=== PATIENT | female | born 1985 | race Caucasian/White ===

== ENCOUNTER → 2021-09-24 13:15 | Outpatient (CLI) | payer BC, SELFPAY ==
--- NOTE | ~2021-09-24 | US_ITS ---
EXAMINATION: US OB transvaginal EXAM DATE: 09/24/2021 13:50 INDICATION: Spotting in first trimester 1st trimester. TECHNIQUE: Pelvic obstetrical transvaginal sonogram was performed by a technologist. There are [facility] grayscale and Doppler images available for interpretation. There are no earlier studies of this gestation for comparison. FINDINGS: Uterus measures 11.1 x 5.9 x 6.0 cm. There is intrauterine gestation sac. pole with heart rate confirmed at 128 beats per minute. The crown-rump length of 5.6 mm corresponds to estima aiyana gestational age by ultrasound of 6 weeks 2 days, estimated date of confinement 05/18/2022. Yolk sa c is identified. Right ovary identified and is morphologically normal, the left not identified. There are 2 small subchorionic regions likely hematomas, each measuring about 1.2 cm diameter by 5 mm in thickness. IMPRESSION: Early live intrauterine gestation, age by ultrasound 6 weeks 2 days. 2 small subchorioni c hematomas. Reviewed, dictated and finalized at location A. [employer] PRODUCTION TEAM MEMBER IMPRESSION: Early live intrauterine gestation, age by ultrasound 6 weeks 2 day s. 2 small subchorionic hematomas.
== END ==
PROVIDERS: Visit Provider Obstetrics & Gynecology Gynecology
DX: O26.851 Spotting complicating pregnancy, first trimester (principal); Z3A.01 Less than 8 weeks gestation of pregnancy
CPT/HCPCS: 76817

== ENCOUNTER → 2021-10-22 14:01 | Outpatient (CLI) | payer BC, SELFPAY ==
--- NOTE | ~2021-10-22 | US_ITS ---
EXAMINATION: US OB <= 14 weeks fetus EXAM DATE: 10/22/2021 14:35 INDICATION: 1st trimester subchorionic hematoma. TECHNIQUE: Pelvic obstetrical transabdominal sonogram was performed by a technologist. There are mu ltiple grayscale and Doppler images available for interpretation. Comparison is made to prior examina tion from 09/24/2021. FINDINGS: Uterus measures 13.6 x 8.1 x 8.5 cm. There is intrauterine gestation sac. pole with heart rate confirmed at 162 beats per minute. The 4.4 cm crown-rump length corresponds to estimated gestational age by ultrasound of 11 weeks 1 day, estimated date of confinement 05/12/2022. Yolk sac is identified. Hypoechoic subchorionic region measuring 1.5 cm diameter by 0.8 cm in thickness, sma ll subchorionic hematoma. Ovaries not identified. IMPRESSION: Live intrauterine gestation with small subchorionic hemorrhage. Reviewed, dictated and finalized at location B. IFIED ORTHOTIST PRACTICE MANAGER
== END ==
PROVIDERS: Visit Provider Obstetrics & Gynecology Gynecology
DX: O36.8910 Maternal care for other specified fetal problems, first trimester, not applicable or unspecified (principal); Z3A.00 Weeks of gestation of pregnancy not specified
CPT/HCPCS: 76801

== ENCOUNTER → 2021-11-19 13:56 | Outpatient (CLI) | payer BC, SELFPAY ==
--- NOTE | ~2021-11-19 | US_ITS ---
EXAMINATION: US OB limited DATE: 11/19/2021 14:24 INDICATION: Subchorionic hematoma TECHNIQUE: Real-time ultrasound of the pelvis was performed. The interpreting radiologist was not pre sent for the study. COMPARISON: 10/22/2021 FINDINGS: There is a single living fetus in breech presentation. The placenta is anterior and not low-lying wi th caudal margin 7.4 cm from the internal cervical os. heart rate is 161 beats per minute (bpm) . The amniotic fluid volume is subjectively normal. Small subchorionic hematoma along the left anteri or margin of the placenta measuring up to 1.7 x 0.8 cm IMPRESSION: 1. Single living fetus in breech presentation with heart rate of 161 bpm. 2. Persistent small subchorionic hematoma along the left anterior margin of the anterior placenta. Reviewed, dictated and finalized at location B. ING MACHINE ASSEMBLER IMPRESSION: 1. Single living fetus in breech presentation with heart rate of 161 bpm . 2. Persistent small subchorionic hematoma along the left anterior margin of the anterior placenta.
== END ==
PROVIDERS: Visit Provider Obstetrics & Gynecology Gynecology
DX: O36.8910 Maternal care for other specified fetal problems, first trimester, not applicable or unspecified (principal); Z3A.00 Weeks of gestation of pregnancy not specified
CPT/HCPCS: 76815

== ENCOUNTER → 2021-12-03 14:01 | Outpatient (CLI) | payer BC, SELFPAY ==
--- NOTE | ~2021-12-03 | US_ITS ---
EXAMINATION: US OB limited DATE: 12/03/2021 14:20 INDICATION: Subchorionic hematoma follow-up TECHNIQUE: Real-time ultrasound of the pelvis was performed. The interpreting radiologist was not pre sent for the study. COMPARISON: 11/19/2021 FINDINGS: There is a single living fetus in vertex presentation. The placenta is anterior and 6.1 cm from the internal cervical os. There is an approximately 8 mm x 7 mm 6 mm hematoma along the placenta l margin. cardiac activity and movement are noted. heart rate is 153 beats per vivian te (bpm). The amniotic fluid index is subjectively normal. IMPRESSION: 1. Single living fetus in vertex presentation. 2. Tiny hematoma along the inferior placental margin. Reviewed, dictated and finalized at location F. GER THERAPY
== END ==
PROVIDERS: Visit Provider Obstetrics & Gynecology Gynecology
DX: O36.8912 Maternal care for other specified fetal problems, first trimester, fetus 2 (principal); Z3A.17 17 weeks gestation of pregnancy
CPT/HCPCS: 76815

== ENCOUNTER 2022-04-04 12:14 | Outpatient (CLI) | payer BC, SELFPAY ==
[2022-04-04 12:43] LABS: Hematocrit 34.5 % (37.0-47.0); Hemoglobin 11.2 g/dL (12.0-15.0); Mean Corpuscular HGB Conc 32.5 g/dl (32-36); Mean Corpuscular Volume 86.3 fl (80-100); Mean Platelet Volume 9.2 fl (7.4-10.4); Platelet Count Result 207 k/mm3 (150-375); White Blood Count 7.6 K/mm3 (4.5-10.0)
[2022-04-04 12:56] LABS: Alanine Aminotransferase 12 U/L (6-35); Albumin Level 3.5 g/dL (3.5-5.1); Alkaline Phosphatase 185 U/L (38-126); Anion Gap 7 mmol/L (8-16); Aspartate Amino Transferase 19 U/L (14-36); Bilirubin,Total 0.3 mg/dL (0.2-1.3); Blood Urea Nitrogen 8 mg/dL (7-17); Calcium 9.4 mg/dL (8.4-10.2); Carbon Dioxide 21 mmol/L (22-30); Chloride 109 mmol/L (98-107); Estimated Glomerular Filt Rate > 60; Glucose 115 mg/dL (65-110); Potassium 3.6 mmol/L (3.4-5.0); Sodium 137 mmol/L (137-145); Uric Acid 4.2 mg/dL (2.5-7.5)
[2022-04-04 13:06] LABS: Lactate Dehydrogenase 390 U/L (313-618)
== END 2022-04-04 12:15 | disposition home or self-care (01) ==
LOC: ANHLAB 12:16
PROVIDERS: PCP Obstetrics & Gynecology Gynecology; Visit Provider Obstetrics & Gynecology Gynecology
DX: I10 Essential (primary) hypertension (principal)
CPT/HCPCS: 36415; 80053; 83615; 84550; 85027

== ENCOUNTER 2022-04-06 12:52 | Outpatient (CLI) | payer BC, SELFPAY ==
[2022-04-06 13:15] LABS: Collection Time Urine 24 HOURS
[2022-04-06 13:31] LABS: Specific Gravity Ur 1.012; Total Volume 24 Hour Urine 2500 ml
[2022-04-06 13:37] LABS: Creatinine Urine 52.1 mg/dL; Patient Weight 225 Lbs; Total Protein Urine 24 Hr 400 mg/24hr (28-141); Total Protein Urine Random 16 mg/dL
[2022-04-06 13:40] LABS: Creatinine Clearance Urine 152.7 ml/min (75-125); Serum Creat 0.5
== END 2022-04-06 12:53 | disposition home or self-care (01) ==
PROVIDERS: PCP Obstetrics & Gynecology Gynecology; Visit Provider Obstetrics & Gynecology Gynecology
DX: O14.93 Unspecified pre-eclampsia, third trimester (principal); Z3A.35 35 weeks gestation of pregnancy
CPT/HCPCS: 81050; 82575; 84156

== ENCOUNTER 2022-04-08 18:32 | Outpatient (RCR) | payer BC, SELFPAY ==
[2022-04-07] MEDS: BETAMETHASONE SOD PHOS/ACETATE 30 MG/5 ML VIAL 12 MG IM (18:44)
[2022-04-08] MEDS: BETAMETHASONE SOD PHOS/ACETATE 30 MG/5 ML VIAL 12 MG IM (18:41)
== END 2022-05-24 09:16 | disposition home or self-care (01) ==
LOC: ANHOBOP 18:32
PROVIDERS: PCP Obstetrics & Gynecology Gynecology; Visit Provider Obstetrics & Gynecology Gynecology
DX: O36.8990 Maternal care for other specified fetal problems, unspecified trimester, not applicable or unspecified (principal); Z3A.00 Weeks of gestation of pregnancy not specified
CPT/HCPCS: 96372; J0702

== ENCOUNTER 2022-04-18 17:00 | Inpatient (IN) | payer BC, SELFPAY ==
[2022-04-18] VITALS (7 sets, daily range): BP systolic 122–139; BP diastolic 79–95; PULSE 95–114; TEMP 36.4; BMI 37.6
--- NOTE | 2022-04-18 17:58 | LDADM ---
This patient, Sudha Le, was admitted to Labor/Delivery/Recovery 109 on 04/18/22 at 17:00. Plans for labor, pain management and were discussed with patient. Patient/family oriented to hospital policies and general routines including ID bracelet, bed and alarms, visiting hours, pain management, procedures, bathroom and other care routines, personal items, smoking policy, room service/diet and guest tray routines, security routines, and visiting hours. Patient/Family are encouraged to report perceived risks to care and to ask questions if they do not understand what they are told or what they should do. See OBIX for further documentation.
[2022-04-18 18:08] LABS: Basophils Percent Auto 0.3 % (0.2-1.2); Eosinophils Percent Auto 0.1 % (0-4.4); Hematocrit 34.8 % (37.0-47.0); Hemoglobin 11.5 g/dL (12.0-15.0); Immature Granulocyte Absolute 0.06 K/mm3 (0.00-0.031); Immature Granulocyte Percent A 0.7 % (0-0.5); Lymphocytes Absolute Auto 1.96 K/mm3 (0.9-3.2); Lymphocytes Percent Auto 22.6 % (18.3-44.2); Mean Corpuscular Hemoglobin 27.3 pg (26-34); Mean Corpuscular Volume 82.5 fl (80-100); Mean Platelet Volume 9.6 fl (7.4-10.4); Monocytes Absolute Auto 0.6 K/mm3 (0.1-0.6); Monocytes Percent Auto 7.4 % (2.6-8.5); Neutrophils Percent Auto 68.9 % (45.5-73.1); Platelet Count Result 240 k/mm3 (150-375); Red Blood Count 4.22 M/mm3 (4.2-5.4); Red Cell Distribution Width 14.1 % (11.5-14.5); White Blood Count 8.7 K/mm3 (4.5-10.0)
[2022-04-18 18:24] LABS: Alanine Aminotransferase 14 U/L (6-35); Albumin Level 3.5 g/dL (3.5-5.1); Alkaline Phosphatase 222 U/L (38-126); Anion Gap 5 mmol/L (8-16); Aspartate Amino Transferase 16 U/L (14-36); Bilirubin,Total 0.2 mg/dL (0.2-1.3); Blood Urea Nitrogen 12 mg/dL (7-17); Calcium 9.3 mg/dL (8.4-10.2); Carbon Dioxide 20 mmol/L (22-30); Chloride 106 mmol/L (98-107); Estimated CRCL calculation 149 ml/min; Estimated Glomerular Filt Rate > 60; Glucose 135 mg/dL (65-110); Potassium 3.8 mmol/L (3.4-5.0); Sodium 131 mmol/L (137-145); Uric Acid 3.9 mg/dL (2.5-7.5)
[2022-04-18] MEDS: DINOPROSTONE 10 MG VAG INSERT VAGINAL (18:43)
--- NOTE | 2022-04-18 19:12 | PHAR ---
PT'S HOME MED HYDROXYZINE PAMOATE 25 MG CAPSULES VERIFIED BY PHARMACY
[2022-04-18] MEDS: hydrOXYzine pamoate 25 MG CAPSULE PO (21:43)
[2022-04-18] MEDS: INSULIN HUMAN NPH (*BKC) 100 UNITS/ML 30 UNITS SUB-Q (21:45)
[2022-04-18 21:51] LABS: Glucose Point of Care 135 mg/dl (65-105)
[2022-04-19] VITALS (62 sets, daily range): BP systolic 94–183; BP diastolic 51–143; PULSE 78–193; RESP 18; TEMP 36.3–36.8; O2SAT 98–100
[2022-04-19 01:11] LABS: Glucose Point of Care 113 mg/dl (65-105)
[2022-04-19 04:56] LABS: Glucose Point of Care 94 mg/dl (65-105)
--- NOTE | 2022-04-19 08:24 | WPDOBADMIT ---
Obstetrics - Admit Note Admission Note: record reviewed. No pertinent additions to the history and/or any subsequent changes in the physical findings that are not consistent with the expected course of the were found. Additions to the history and/or subsequent changes in the physical findings follow. None.Here for MIL secondary to preeclampsia, GDMA2, and Covid in . Cervadil last pm. Now 1-50/-2 AROM with clear fluid. Pitocin per protocol. FHTs reactive.
[2022-04-19] MEDS: LACTATED RINGERS 1,000 ML 125 ML IV CONT (08:49)
--- NOTE | 2022-04-19 09:30 | WPDANESEPP ---
Anes - Eval Pre Procedure Procedure: LAbor epidural Date/Time: 04/19/22 09:30 Surgeon: Michael Preop Diagnosis: ABD pain with contractions Pre Op Diagnosis: Induction of Labor Patient Data Age: 37 Gender: F Height: 1.63 m Weight: 99.4 kg Last Vital Signs Temp 97.6 F 04/19/22 07:50 Pulse 99 04/19/22 09:21 BP 128/90 04/19/22 09:21 O2 Del Method Room Air 04/18/22 17:57 Allergies Allergy/AdvReac Type Severity Reaction Status Date / Time No Known Allergies Allergy Verified 04/18/22 18:19 Home Medications Medication Instructions Recorded Confirmed Type insulin NPH isoph U-100 human 100 28 unit subcut HS 04/15/22 04/18/22 History unit/mL (3 mL) subcutaneous pen (Novolin N Flexpen) vit no.95-ferrous 1 tablet PO DAILY 04/15/22 04/18/22 History fumarate 28 mg-folic acid 800 mcg tablet () hydroxyzine pamoate 25 mg capsule 1 cap PO PRN PRN Anxiety 04/18/22 04/18/22 History Laboratory Tests 04/18/22 04/18/22 04/18/22 17:41 17:41 17:41 WBC 8.7 K/mm3 K/mm3 (4.5-10.0) RBC 4.22 M/mm3 M/mm3 (4.2-5.4) Hgb 11.5 g/dL L g/dL (12.0-15.0) Hct 34.8 % L % (37.0-47.0) MCV 82.5 fl fl (80-100) MCH 27.3 pg pg (26-34) MCHC 33.0 g/dl g/dl (32-36) RDW 14.1 % % (11.5-14.5) Plt Count 240 k/mm3 k/mm3 (150-375) MPV 9.6 fl fl (7.4-10.4) Immature Gran % (Auto) 0.7 % H % (0-0.5) Neut % (Auto) 68.9 % % (45.5-73.1) Lymph % (Auto) 22.6 % % (18.3-44.2) Haines % (Auto) 7.4 % % (2.6-8.5) Eos % (Auto) 0.1 % % (0-4.4) Baso % (Auto) 0.3 % % (0.2-1.2) Lymph # (Auto) 1.96 K/mm3 K/mm3 (0.9-3.2) Haines # (Auto) 0.6 K/mm3 K/mm3 (0.1-0.6) Eos # (Auto) 0.0 K/mm3 K/mm3 (0-0.3) Baso # (Auto) 0.0 K/mm3 K/mm3 (0.0-0.1) Abs Immat Gran (auto) 0.06 K/mm3 H K/mm3 (0.00-0.031) Absolute Neuts (auto) 6.0 K/mm3 K/mm3 (1.3-6.7) Absolute Nucleated RBC 0.0 K/mm3 K/mm3 (0.0-0.012) Nucleated RBC % 0.0 % % (0.0-0.2) Sodium 131 mmol/L L mmol/L (137-145) Potassium 3.8 mmol/L mmol/L (3.4-5.0) Chloride 106 mmol/L mmol/L (98-107) Carbon Dioxide 20 mmol/L L mmol/L (22-30) Anion Gap 5 mmol/L L mmol/L (8-16) BUN 12 mg/dL mg/dL (7-17) Creatinine 0.50 mg/dL L mg/dL (0.7-1.0) Estim Creat Clear Calc 149 ml/min ml/min Estimated GFR > 60 (59 - ) Glucose 135 mg/dL H mg/dL (65-110) POC Capillary Glucose Uric Acid 3.9 mg/dL mg/dL (2.5-7.5) Calcium 9.3 mg/dL mg/dL (8.4-10.2) Total Bilirubin 0.2 mg/dL mg/dL (0.2-1.3) AST 16 U/L U/L (14-36) ALT 14 U/L U/L (6-35) Alkaline Phosphatase 222 U/L H U/L (38-126) Total Protein 7.0 g/dL g/dL (6.3-8.2) Albumin 3.5 g/dL g/dL (3.5-5.1) RPR Blood Type O Positive Antibody Screen Negative 04/18/22 04/18/22 04/19/22 17:42 21:45 01:03 WBC RBC Hgb Hct MCV MCH MCHC RDW Plt Count MPV Immature Gran % (Auto) Neut % (Auto) Lymph % (Auto) Haines % (Auto) Eos % (Auto) Baso % (Auto) Lymph # (Auto) Haines # (Auto) Eos # (Auto) Baso # (Auto) Abs Immat Gran (auto) Absolute Neuts (auto) Absolute Nucleated RBC Nucleated RBC % Sodium Potassium Chloride Carbon Dioxide Anion Gap BUN Creatinine Estim Cre
[2022-04-19] MEDS: OXYTOCIN 30 UNITS/NS 500 ML 30 UNITS/500 ML BAG IV CONT (09:45)
[2022-04-19 10:57] LABS: Glucose Point of Care 105 mg/dl (65-105)
[2022-04-19] MEDS: fentaNYL CITRATE INJ (*CRX) 100 MCG/2 ML VIAL 50 MCG IV PUSH (13:12)
--- NOTE | 2022-04-19 14:01 | P.PCNOB_ITS ---
OB - Delivery Note Procedure Delivery date: 04/19/22 Procedure: Events: Gestational Diabetes (GDMA2), Preeclampsia w/o severe features and Other (COVID in ) Induction method: AROM, Per Pitocin Protocol and Per Cervidil Protocol Delivery monitor: External FHT and External Uterine Route of delivery: Episiotomy description: None Laceration Description: Perineal - 1st Degree Delivery repair: vicryl (3-0) Specimen: Yes (placenta) Quantitative Blood Loss (ml): 100 Anesthesia type: Epidural Disposition: Floor [place] Baby Date of : 04/19/22 Weeks of gestation at delivery: 36 Infant gender: Male Weight (pounds): 7 Weight (ounces): 6 presentation: vertex position: Right Occiput Anterior Placenta delivery description: Spontaneous Cord Vessel Description: 3 Vessels score one minute: 8 score five minutes: 9
--- NOTE | 2022-04-19 14:03 | PM.OBDSVD ---
DS: Admitting Diagnosis Discharge Date 04/21/22 Admitting Diagnosis IUP 36 3/7 wks Preeclampsia GDMA2 Covid in DS: Discharge Diagnosis Discharge Diagnosis (1) (normal spontaneous vaginal delivery): Code(s): O80 - Encounter for full-term uncomplicated delivery Status: Acute (2) Pre-eclampsia: Code(s): O14.90 - Unspecified pre-eclampsia, unspecified trimester Status: Acute (3) GDM, class A2: Code(s): O24.419 - Gestational diabetes mellitus in , unspecified control Status: Acute (4) COVID-19 affecting in third trimester: Code(s): O98.513 - Other viral diseases complicating , third trimester; U07.1 - COVID-19 Status: Acute OB - DS: Summary OB Procedures : NST, PIH Mgmt and Ultrasound OB Procedures Intrapartum: Spontaneous Vag Delivery OB Procedures: : None Peripartum Data Infant Delivery Method: Natural Vaginal Laceration Description: Perineal - 1st Degree complications: none Status at Discharge Functional status at discharge: independent ambulation Overall status at discharge: patient is progressing back to baseline Time Spent with Patient Time attestation: Total time spent providing and/or coordinating discharge services: DS: Data Data Completed and Pending Labs on day of discharge: Labs from last 24 hours 04/19/22 04/19/22 04/19/22 09:16 04:51 01:03 WBC RBC Hgb Hct MCV MCH MCHC RDW Plt Count MPV Immature Gran % (Auto) Neut % (Auto) Lymph % (Auto) Beaver % (Auto) Eos % (Auto) Baso % (Auto) Lymph # (Auto) Beaver # (Auto) Eos # (Auto) Baso # (Auto) Abs Immat Gran (auto) Absolute Neuts (auto) Absolute Nucleated RBC Nucleated RBC % Sodium Potassium Chloride Carbon Dioxide Anion Gap BUN Creatinine Estim Creat Clear Calc Estimated GFR Glucose POC Capillary Glucose 105 94 113 H Uric Acid Calcium Total Bilirubin AST ALT Alkaline Phosphatase Total Protein Albumin RPR Blood Type Antibody Screen 04/18/22 04/18/22 04/18/22 21:45 17:42 17:41 WBC RBC Hgb Hct MCV MCH MCHC RDW Plt Count MPV Immature Gran % (Auto) Neut % (Auto) Lymph % (Auto) Beaver % (Auto) Eos % (Auto) Baso % (Auto) Lymph # (Auto) Beaver # (Auto) Eos # (Auto) Baso # (Auto) Abs Immat Gran (auto) Absolute Neuts (auto) Absolute Nucleated RBC Nucleated RBC % Sodium 131 L Potassium 3.8 Chloride 106 Carbon Dioxide 20 L Anion Gap 5 L BUN 12 Creatinine 0.50 L Estim Creat Clear Calc 149 Estimated GFR > 60 Glucose 135 H POC Capillary Glucose 135 H Uric Acid 3.9 Calcium 9.3 Total Bilirubin 0.2 AST 16 ALT 14 Alkaline Phosphatase 222 H Total Protein 7.0 Albumin 3.5 RPR Pending Blood Type Antibody Screen 04/18/22 04/18/22 17:41 17:41 WBC 8.7 RBC 4.22 Hgb 11.5 L Hct 34.8 L MCV 82.5 MCH 27.3 MCHC 33.0 RDW 14.1 Plt Count 240 MPV 9.6 Immature Gran % (Auto) 0.7 H Neut % (Auto) 68.9 Lymph % (Auto) 22.6 Beaver % (Auto) 7.4 Eos % (Auto) 0.1 Baso % (Auto) 0.3 Lymph # (Auto) 1.96 [place]aver # (Auto) 0.6 Eos # (Auto) 0.0 Baso # (Auto) 0.0 Abs Immat Gran (auto) 0.06 H Absolute Neuts (auto) 6.0 Absolute Nucleated RBC 0.0 Nucleated RBC % 0.0 Sodium Potassium Chloride Carbon Dioxide Anion Gap BUN Creatinine Estim Creat Clear Calc Estimated GFR Glucose POC Capillary Glucose Uric Acid Calcium Total Bilirubin AST ALT Alkaline Phosphatase Total Protein Albumin RPR Blood Type O Positive Antibody Screen Negative Discharge Plan Discharge Attending physician on discharge: Mima Rodriguez Discharging Clinician: Mehran
[2022-04-19 14:15] LABS: Rapid Plasma Reagin Non-Reactive (NonReactive)
[2022-04-19] MEDS: OXYTOCIN 30 UNITS/NS 500 ML 30 UNITS/500 ML BAG 125 UNITS IV CONT (14:38)
[2022-04-19] MEDS: IBUPROFEN 600 MG TABLET PO ×2 (15:57→22:53)
[2022-04-19] MEDS: WITCH HAZEL 40 PADS 1 PAD TOPICAL (16:45)
[2022-04-19] MEDS: DIBUCAINE 1% OINTMENT 30 GM TUBE 1 APPLIC TOPICAL (16:45)
[2022-04-19] MEDS: BENZOCAINE 20% AER SPR (*SP) 56 GM CAN 1 SPRAY TOPICAL (16:45)
--- NOTE | 2022-04-19 17:13 | OBPPTRN ---
Patient transferred to post room # 292 via wheelchair. Support person present. Oriented to unit, room, information board, rooming in, admission packet and security measures. Patient verbalizes understanding.
[2022-04-20] MEDS: IBUPROFEN 600 MG TABLET PO ×2 (04:50→17:33)
[2022-04-20 05:00] VITALS: BP 123/86; PULSE 91; RESP 18; TEMP 36.8; O2SAT 98
[2022-04-20 05:54] LABS: Hematocrit 33.5 % (37.0-47.0); Hemoglobin 10.3 g/dL (12.0-15.0)
[2022-04-20 07:40] VITALS: BP 117/79; PULSE 92; RESP 18; TEMP 36.6; O2SAT 99
--- NOTE | 2022-04-20 07:53 | PM.OBPNVD ---
OB - PN: Subj Subjective Date/time seen: 04/20/22 07:53 Patient comments: no complaints and pain well controlled baby status: doing well OB - PN: Obj Data Labs CBC & Chem 7: 04/20/22 05:03 04/18/22 17:41 Labs: Laboratory Results - last 24 hr 04/18/22 04/19/22 04/20/22 17:42 09:16 05:03 Hgb 10.3 L Hct 33.5 L POC Capillary Glucose 105 RPR Non-reactive OB - PN A/P Plan day: 1 Plan: routine care Time Spent With Patient Time: Total time spent is greater than 50% in coordination of care (as documented) at patient's floor/unit and/or counseling patient: Exam : Bimanual exam- vagina & uterus: other (Uterus firm, nt @U)
[2022-04-20] MEDS: MULTIVIT/MIN/PREN/FOL AC/IRON TABLET 1 TAB PO (10:21)
[2022-04-20] MEDS: DOCUSATE SODIUM 100 MG CAPSULE PO ×2 (10:21→17:33)
[2022-04-20 11:52] VITALS: BP 124/81; PULSE 95; RESP 16; TEMP 36.7; O2SAT 99
--- NOTE | 2022-04-20 12:34 | PC.NURSE ---
1100 visit with pt; baby sleeping; next feeding at about 1140. Mother reports that baby latched and nursed for 8 minutes at 0840, and then she bottle fed; she reports she is pumping at each feeding. Reviewed importance of attempting breast feeding, not expecting infant to breast feed at each feeding; discussed importance of deep latch, maintained latch with vigorous sucking and listening for swallowing. Instructed to continue supplementation until baby grows and matures to closer to term gestation, and discuss with doctor when baby can move to exclusively breast feeding. Suggested appointment with [facility] at [facility] to have a weighted feeding evaluation to evaluate how much transfers at the breast. Reviewed frequency of pumping, at least 8 times a day, 20 minutes. Pt denies pain with pumping and with latch on. Mother attentive and voiced understanding of information shared. She was encouraged to ask her nurse to observe baby's latch at next feeding, or can call LC to return. She agreed.
[2022-04-20 18:50] VITALS: BP 128/80; PULSE 83; RESP 16; TEMP 36.2
[2022-04-21] MEDS: IBUPROFEN 600 MG TABLET PO ×2 (03:48→10:53)
[2022-04-21 07:30] VITALS: BP 118/70; PULSE 78; RESP 16; TEMP 36.9; O2SAT 99
--- NOTE | 2022-04-21 07:47 | PM.OBPNVD ---
OB - PN: Subj Subjective Date/time seen: 04/21/22 07:47 Patient comments: no complaints and pain well controlled baby status: doing well OB - PN: Obj Data Labs CBC & Chem 7: 04/20/22 05:03 04/18/22 17:41 OB - PN A/P Plan day: 2 Plan: routine care and discharge home Time Spent With Patient Time: Total time spent is greater than 50% in coordination of care (as documented) at patient's floor/unit and/or counseling patient: Exam : Bimanual exam- vagina & uterus: other (Uterus firm, nt @U)
[2022-04-21] MEDS: DOCUSATE SODIUM 100 MG CAPSULE PO (10:53)
[2022-04-21] MEDS: MULTIVIT/MIN/PREN/FOL AC/IRON TABLET 1 TAB PO (10:53)
[2022-04-21 12:04] VITALS: BP 131/86; PULSE 105; RESP 18; TEMP 37.1; O2SAT 99
[2022-04-22 10:13] VITALS: BP 139/88; PULSE 85; RESP 20; TEMP 37.4; O2SAT 99
== END 2022-04-21 13:09 | disposition home or self-care (01) | DRG 807 ==
LOC: ANHLDR 04-19 14:05 → ANHOB2 04-19 17:15
PROVIDERS: Admitting Provider Obstetrics & Gynecology Gynecology; PCP Obstetrics & Gynecology Gynecology; Visit Provider Obstetrics & Gynecology Gynecology
DX: O14.04 Mild to moderate pre-eclampsia, complicating childbirth (principal); Z37.0 Single live birth; O62.3 Precipitate labor; O76 Abnormality in fetal heart rate and rhythm complicating labor and delivery; O70.0 First degree perineal laceration during delivery; O99.214 Obesity complicating childbirth; E66.01 Morbid (severe) obesity due to excess calories; O24.424 Gestational diabetes mellitus in childbirth, insulin controlled; Z3A.36 36 weeks gestation of pregnancy; Z86.16 Personal history of COVID-19
CPT/HCPCS: 36415; 80053; 82948; 84550; 85014; 85018; 85025; 86592; 86850; 86900; 86901; 88307; A9270; J1815; J2590; J2795; J3010; J7120

== ENCOUNTER 2022-04-29 10:20 | Outpatient (CLI) | payer BC, SELFPAY ==
--- NOTE | 2022-05-02 09:47 | PC.NURSE ---
In- 1020 Out- 1050 Reason for visit: Mother requested a weighted feeding related to weight loss History: G 2 P2 mother was induced for Pre-eclampsia, GDMA2. She has a history of anxiety and AMA. There were no complications with her labor. Infant History: Delivered at 36 3/7 EGA. Observations: Mother independently latches infant effectively with very minimal assistance. Encouraged mother to bring infant into her body closer with ear, shoulder, and hips aligned. weight: 3190g Lowest weight: 2920g Last weight: 2920g Pre-feed weight: 3120g Post-feed weight: 3167g Plan of Care: Patient plans on following up with Dr. Ann 05/02 Follow up plans: none at this time
== END 2022-04-29 10:21 | disposition home or self-care (01) ==
PROVIDERS: PCP Obstetrics & Gynecology Gynecology; Visit Provider Pediatrics
DX: Z39.1 Encounter for care and examination of lactating mother (principal)
CPT/HCPCS: 99211; G0463